=== PATIENT | male | born 1940 | race African-American/Black ===

== ENCOUNTER → 2017-10-24 | Outpatient (CLI) | payer MEDICARE, OTHER ==
--- NOTE | 2017-10-24 09:39 | ST Modified Barium Swallow ---
Recommendation - Recommendations Recommendations: 1. Recommend follow up with GI. 2. Recommend continue current diet. Medical Diagnoses - Medical Diagnoses Medical Diagnosis Description & ICD-10 Code(s): non-specific EGD with oropharyngeal transfer dysphagia vs CVA Other Medical Diagnoses/Co-Morbidities: Patient reports admitted to [facility] on 10/07/17 due to swallowing problem. Reports unable to swallow solids or pills. Reports swallow has since improved but not completely back to baseline. - ICD-10 Tx Diagnosis Coding (1) Dysphagia, pharyngoesophageal phase ICD-10 Code(s): R13.14 - DYSPHAGIA, PHARYNGOESOPHAGEAL PHASE (2) Other dysphagia ICD-10 Code(s): R13.19 - OTHER DYSPHAGIA ST Modified Barium Swallow - General Date: 10/24/17 Referring Physician: Jenny Kyle DO Risks/Precautions: None Date of Onset: 10/07/18 Reason for Referral: MBSS - History History obtained from: Patient -: Medical - patient also reports high blood pressure, high cholesterol, diabetes, heart stents, and prostate surgery. Medications: aspirin, amloplodine, aceteminophen, aricept, diazetine, fluoric acid, sertaline, vitamin D. Allergies: NKA. - Functional Status Prior Functional Status: INDEPENDENT: feeding Current Functional Limitations: feeding - Subjective Patient/caregiver goal(s): safe swallow Cognitive-Linguistic Function: WNL Speech Intelligibility: WNL Current Nutritional Means: PO Current PO diet: Regular Pain: Patient reports, 0/5 - Objective Assessment: Upright, Left Lateral - Food Trials Used Food trials used: Thin liquids, Pureed, Regular The patient: Was Able to Self Feed - Oral-Motor Skills Dentition: Dentures-Upper, Dentures-Lower Velo-pharyngeal function: Not assessed Laryngeal Function: clear voicing - Assessment Oral prep: Normal Labial closure: Adequate Leakage: None Mastication: Adequate Lingual Movement: Normal Oral stage: Normal for this Procedure - Pharyngeal Stage Initiation of Pharyngeal Stage Reflex: Normal Decreased laryngeal elevation: No Reduced Velopharyngeal Closure: no Reduced pressure generation: No Pre-swallow pooling in valleculae: None Pre-Swallow pooling in pyriforms: None Reduced epiglottic excursion: No Reduced pharyngeal peristalsis/contraction: No Post-swallow residulas vallecular: None - cleared Post-Swallow residuals in pyriforms: None Reduced Cricopharyngeal opening: No - Esophageal Stage Cricopharyngeal Function: Normal - hypertrophy - Fall Risk Assessment Medications/Conditions that increase fall risks include: Antidepressants, sedatives, anti-arrhythmic, diuretic, benzodiazipenes, neuroleptics. BP regulation problems, cardiac problems, balance or gait deficits, neurological problems. Is patient considered at risk for falls: no Fall Risk Actions Taken: No action needed - Behavioral Observations During evaluation process patient: was pleasant, was cooperative, able to answer questions - Treatment / Educational Needs: Treatment/Education Needs: Treatment consisted of patient education on the role of the Speech Pathologist. Patient's plan of care and golas were communicated as well as scheduling and attendance policies. Recommendations for initial home program were shared. Patient demonstrated understanding and verbalized agreement. - Impression/Summary Laryngeal Penetration: No Tracheal Aspiration: no Patient presents with: Normal swallow at eval - oral, oropharyngeal and pharyngeal stages within normal limits for procedure given patient's age Risk of Aspiration: Mild Risk of nutritional compromise: Moderate - Recommendations NPO: no Solid diet recommendations: Regular Liquid Diet Modification: Thin Strict aspiration precautions: Yes Pt/Family education and followup with MD: Yes Dysphagia therapy with [employer] MACHINE: no Recommended techniques: Fully Upright During Meal, Small Bites and Sips - Time Total Time: 15 - Plan of Care Summary: Patient presents with safe and effective swallow. Would recommend small bites & sips. Patient to follow-up with referring physician: Yes POC Procedures/Codes: [facility] [place]) Strategies to optimize patient understanding include:: ongoing assessment of educational needs, implementation of educational strategies, and re-education. - - -: Thank you for the opportunity to work with this patient and his/her family. Should you have any questions about this patient's plan or progress, I can be reached at [phone]. Charge G Code? - - -: No
--- NOTE | 2017-10-24 16:33 | RADIOLOGY REPORT (SQ) ---
EXAM DESCRIPTION: ODALIS SWALLOW COMPLETED DATE/TIME: 10/24/2017 8:30 am REASON FOR STUDY: DYSPHAGIA (R13.10) R13.10 DYSPHAGIA, UNSPECIFIED COMPARISON: None. TECHNIQUE: Videofluoroscopic swallowing examination was performed in conjunction with speech patholo gy. Videofluoroscopic imaging was obtained and reviewed and these are the findings: RADIATION DOSE: 1 minutes 7 seconds of fluoroscopy was used. 1 images saved to PACS. LIMITATIONS: None FINDINGS: The patient was brought into the fluoro room and placed upright on a modified barium swall ow chair. The patient was then given multiple consistencies mixed with barium to swallow under live fluoroscopic video guidance. According to the Speech Pathologist there was no penetration or aspirat ion. Mild cricopharyngeal hypertrophy. IMPRESSION: NO EVIDENCE OF PENETRATION OR ASPIRATION. PLEASE SEE SPEECH PATHOLOGIST REPORT FOR OTHE R FINDINGS AND RECOMMENDATIONS. COMMENT: Quality ID 145: Final reports for procedures using fluoroscopy that document radiation exp osure indices, or exposure time and number of fluorographic images (if radiation exposure indices are not available) TECHNICAL DOCUMENTATION: JOB ID: [id number] [employer]- All Rights Reserved
== END ==
LOC: RAD 07:06
PROVIDERS: ATTEND Family Medicine
DX: R13.14 Dysphagia, pharyngoesophageal phase (principal)
CPT/HCPCS: 74230

== ENCOUNTER 2019-06-26 08:54 | Day surgery (SDC) | payer MEDICARE, OTHER ==
[2019-06-26 09:37] LABS: HEMATOCRIT 29.2 % (37.9-51.0); HEMOGLOBIN 9.9 g/dL (13.5-17.0); MEAN CORPUSCULAR HEMOGLOBIN 35.8 pg (27.0-33.4); MEAN CORPUSCULAR HGB CONC 33.8 g/dL (32.0-36.0); MEAN CORPUSCULAR VOLUME 106 fl (80-97); PLATELET COUNT 134 10^3/uL (150-450); RED BLOOD COUNT 2.76 10^6/uL (4.35-5.55); RED CELL DISTRIBUTION WIDTH 16.6 % (11.5-14.0)
[2019-06-26 09:41] LABS: INTERNATIONAL RATION (INR) 1.12; PARTIAL THROMBOPLASTIN TIME 25.2 SEC (23.5-35.8); PROTHROMBIN TIME 14.5 SEC (11.4-15.4)
[2019-06-26 09:50] LABS: BLOOD UREA NITROGEN 10 mg/dL (7-20)
[2019-06-26 10:22] LABS: WHITE BLOOD COUNT 34.5 10^3/uL (4.0-10.5)
[2019-06-26] MEDS ORDERED: MIDAZOLAM 2 MG/2 ML INJ ONE (10:42)
[2019-06-26] MEDS ORDERED: FENTANYL CITRATE INJ/PF 100 MCG/2 ML AMPUL ONE (10:42)
--- NOTE | 2019-06-26 12:01 | RADIOLOGY REPORT (SQ) ---
EXAM DESCRIPTION: CT BIOPSY BONE MARROW, NEEDLE; CT NEEDLE PLACEMENT COMPLETED DATE/TIME: 06/26/2019 11:27 am; 06/26/2019 11:26 am REASON FOR STUDY: ELEVATED WHITE BLOOD COUNT; ELEVATED WHITE BLOOD COUNT, BONE MARROW BIOPSY D72.829 ELEVATED WHITE BLOOD CELL COUNT, UNSPECIFIED Z79.01 HALFWAY (CURRENT) USE OF ANTICOAGULANTS COMPARISON: None. TECHNIQUE: CT guided biopsy of the left iliac crest bone marrow performed with conscious sedation. CT Fluoroscopy Time: [address] scanners at this facility use dose modulation, iterative reconstruction, and/or weight based d osing when appropriate to reduce radiation dose to as low as reasonably achievable (ALARA). [facility]: Dose Right [facility]: CareDose [facility]: Dose Right [facility]: Teradose 4D [facility]: Minervax RADIATION DOSE: mGy. FINDINGS: After obtaining informed consent and explaining the risks and benefits of conscious sedati on,the patient agreed to the procedure. Prior to the procedure, a time out was performed to verify th e patient's identity and planned procedure. IV conscious sedation was administered and physician direction by the registered nurse using 75 micro grams of fentanyl. Physiologic monitoring was provided before, during, and after sedation. The total sedation time was 30 minutes. Documentation face to face time, the performing proceduralist, spent monitoring the patient: [address] scanning was performed to localize the percutaneous site for the biopsy approach. After sterile skin prep and local lidocaine for skin and deep tissue anesthesia, a coaxial biopsy nee dle was used to obtain a bone marrow aspirate, and a bone marrow core of tissue. The biopsy tissue wa s received by [facility] lab to be sent out for evaluation. There were no immediate complications. Pathology is pending at the time of dictation. IMPRESSION: CT GUIDED ASPIRATE AND CORE BIOPSY OF THE LEFT POSTERIOR ILIAC CREST BONE MARROW PERFORM ED WITHOUT IMMEDIATE COMPLICATION. PATHOLOGY PENDING. IV CONSCIOUS SEDATION WITHOUT COMPLICATION. COMMENT: Quality ID 145: Final reports for procedures using fluoroscopy that document radiation exp osure indices, or exposure time and number of fluorographic images (if radiation exposure indices are not available) Patient medication list reviewed: Yes- Quality ID# [id number]:Eligible professional attests to documenting i n the medical record they obtained, updated, or reviewed the patient's current medications.. TECHNICAL DOCUMENTATION: JOB ID: [id number] Quality ID# 436: Final reports with documentation of one or more dose reduction techniques (e.g., Aut omated exposure control, adjustment of the mA and/or kV according to patient size, use of iterative r econstruction technique) 2010 [employer]- All Rights Reserved Reading location - IP/workstation name: [email or web address]
--- NOTE | 2019-06-26 12:01 | RADIOLOGY REPORT (SQ) ---
EXAM DESCRIPTION: CT BIOPSY BONE MARROW, NEEDLE; CT NEEDLE PLACEMENT COMPLETED DATE/TIME: 06/26/2019 11:27 am; 06/26/2019 11:26 am REASON FOR STUDY: ELEVATED WHITE BLOOD COUNT; ELEVATED WHITE BLOOD COUNT, BONE MARROW BIOPSY D72.829 ELEVATED WHITE BLOOD CELL COUNT, UNSPECIFIED Z79.01 SHELTER (CURRENT) USE OF ANTICOAGULANTS COMPARISON: None. TECHNIQUE: CT guided biopsy of the left iliac crest bone marrow performed with conscious sedation. CT Fluoroscopy Time: [address] scanners at this facility use dose modulation, iterative reconstruction, and/or weight based d osing when appropriate to reduce radiation dose to as low as reasonably achievable (ALARA). [facility]: Dose Right [facility]: CareDose [facility]: Dose Right [facility]: Teradose 4D [facility]: [employer] RADIATION DOSE: mGy. FINDINGS: After obtaining informed consent and explaining the risks and benefits of conscious sedati on,the patient agreed to the procedure. Prior to the procedure, a time out was performed to verify th e patient's identity and planned procedure. IV conscious sedation was administered and physician direction by the registered nurse using 75 micro grams of fentanyl. Physiologic monitoring was provided before, during, and after sedation. The total sedation time was 30 minutes. Documentation face to face time, the performing proceduralist, spent monitoring the patient: [address] scanning was performed to localize the percutaneous site for the biopsy approach. After sterile skin prep and local lidocaine for skin and deep tissue anesthesia, a coaxial biopsy nee dle was used to obtain a bone marrow aspirate, and a bone marrow core of tissue. The biopsy tissue wa s received by [facility] lab to be sent out for evaluation. There were no immediate complications. Pathology is pending at the time of dictation. IMPRESSION: CT GUIDED ASPIRATE AND CORE BIOPSY OF THE LEFT POSTERIOR ILIAC CREST BONE MARROW PERFORM ED WITHOUT IMMEDIATE COMPLICATION. PATHOLOGY PENDING. IV CONSCIOUS SEDATION WITHOUT COMPLICATION. COMMENT: Quality ID 145: Final reports for procedures using fluoroscopy that document radiation exp osure indices, or exposure time and number of fluorographic images (if radiation exposure indices are not available) Patient medication list reviewed: Yes- Quality ID# 130:Eligible professional attests to documenting i n the medical record they obtained, updated, or reviewed the patient's current medications.. TECHNICAL DOCUMENTATION: JOB ID: [id number] Quality ID# [id number]: Final reports with documentation of one or more dose reduction techniques (e.g., Aut omated exposure control, adjustment of the mA and/or kV according to patient size, use of iterative r econstruction technique) 2010 [employer]- All Rights Reserved Reading location - IP/workstation name: [email or web address]
[2019-06-26] MEDS ORDERED: HYDRALAZINE HCL 10 MG TABLET PO ONE (13:45)
[2019-06-26 13:56] VITALS: BP 162/100
[2019-06-27 13:43] LABS: PATH REVIEW PATHOLOGIST REVIEWED
== END 2019-06-26 13:40 | disposition home or self-care (01) ==
LOC: RAD 08:54
PROVIDERS: ATTEND Internal Medicine Hematology & Oncology
DX: D72.829 Elevated white blood cell count, unspecified (principal); I25.10 Atherosclerotic heart disease of native coronary artery without angina pectoris; I10 Essential (primary) hypertension; E78.00 Pure hypercholesterolemia, unspecified; Z86.711 Personal history of pulmonary embolism; Z85.46 Personal history of malignant neoplasm of prostate; Z79.01 Long term (current) use of anticoagulants; Z79.899 Other long term (current) drug therapy; Z79.82 Long term (current) use of aspirin
CPT/HCPCS: 36415; 82962; 84520; 82565; 85027; 85610; 85730; 38221; 77012; J3010; J2250; J3490

== ENCOUNTER 2019-07-01 08:22 | Inpatient (IN) | payer OTHER, MEDICARE ==
[2019-07-01] MEDS ORDERED: ASPIRIN 81 MG TABLET, CHEWABLE PO ONE (09:10)
--- NOTE | 2019-07-01 09:31 | ER Document Report ---
ED General - General Stated Complaint: CHEST PAIN,DIFFICULTY BREATHING Time Seen by Provider: 07/01/19 09:09 Notes: 79-year-old male with a history of heart problems presents to the ER complaining of a month history of worsening shortness of breath. The patient sees Dr. Soler cardiology [place]. Patient states any exertion makes him very short of breath even taking couple steps now. The patient states his legs swell little bit but not significant is worse with any kind of exertion is not worse laying flat no fever chills he has had a nonproductive cough no sore throat. States he will get occasional chest discomfort on and off. Describes it is heaviness but will go away with rest. Rates it as mild. TRAVEL OUTSIDE OF THE [place] IN LAST 30 DAYS: No - Related Data Allergies/Adverse Reactions: No Known Allergies Allergy (Verified 06/25/19 14:27) Past Medical History - Social History Smoking Status: Unknown if Ever Smoked Family History: Reviewed & Not Pertinent - Past Medical History Cardiac Medical History: Reports: Hx Coronary Artery Disease - HIGH CHOL, Hx Heart Attack - STENTS 2003, Hx Hypertension Pulmonary Medical History: Denies: Hx Asthma, Hx Bronchitis, Hx COPD, Hx Pneumonia Neurological Medical History: Denies: Hx Cerebrovascular Accident, Hx Seizures Musculoskeletal Medical History: Reports Hx Arthritis - Immunizations Hx Diphtheria, Pertussis, Tetanus Vaccination: Yes Hx Pneumococcal Vaccination: 06/18/16 Review of Systems - Review of Systems Constitutional: denies: Chills, Fever Cardiovascular: See HPI, Chest pain, Dyspnea, Edema Respiratory: Cough, Short of breath Gastrointestinal: denies: Nausea, Vomiting Genitourinary: denies: Dysuria -: Yes All other systems reviewed and negative Physical Exam - Vital signs Vitals: Temp Pulse Resp BP Pulse Ox 98.7 F 60 22 H 185/77 H 93 07/01/19 08:54 07/01/19 08:54 07/01/19 08:54 07/01/19 08:54 07/01/19 08:54 - Notes Notes: GENERAL_APPEARANCE: well_nourished, alert, cooperative VITALS: reviewed, see vital signs table. HEAD: no_swelling\tenderness on the head. EYES: PERRL, EOMI, conjunctiva_clear. NOSE: no_nasal_discharge. MOUTH: (-)decreased moisture. THROAT: no_tonsilar_inflammation, no_airway_obstruction. no_lymphadenopathy NECK: supple, no_neck_tenderness, (-)thyromegaly. BACK: no_back_tenderness. CHEST_WALL: no_chest_tenderness. LUNGS: no_wheezing, no_rales, no_rhonchi, (-)accessory muscle use, good air exchange bilateral. HEART: normal_rate, normal_rhythm, normal_S1, normal_S2, (-)S3, (-)S4, no_murmur, no_rub. ABDOMEN: normal_BS, soft, no_abd_tenderness, (-)guarding, (-)rebound, no_organo megaly, no_abd_masses. EXTREMITIES: good pulses in all_extremities, no_swelling\tenderness in the extremities, 1+_edema. SKIN: warm, dry, good_color, no_rash. MENTAL_STATUS: speech_clear, oriented_X_3, normal_affect, responds_appropriately to questions. Course - Re-evaluation Re-evalutation: 07/01/19 09:30 79-year-old male presents with exertional dyspnea worsening over the last week. Patient has had episodes of this before. 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 The patient states he had a little bit more edema than usual but nothing significant. Denies fever chills or sore throat states he has a no nproductive cough. Denies any orthopnea but does have dyspnea on exertion. States he does get some occasional heaviness when he does exert himself. 07/01/19 14:29 BNP is elevated at 2000. Patient has hypertension. I am not getting a story of infectious etiology for him chest x-ray is not well done due to the patient's size. I think the findings in the chest x-ray are more heart failure than pneumonia. We will get a CT noncontrasted to better differentiate. Give patient a dose of Lasix here empirically in case this is pneumonia we will draw set of cultures and give a dose of Levaquin. I spoke with the hospitalist service for hospitalization to continue diuresis and further investigation. - Vital Signs Vital signs: Temp Pulse Resp BP Pulse Ox 98.7 F 60 22 H 180/91 H 93 07/01/19 08:54 07/01/19 08:54 07/01/19 11:00 07/01/19 10:01 07/01/19 11:00 - Laboratory Result Diagrams: 07/01/19 10:50 07/01/19 09:31 Laboratory results interpreted by me: 07/01/19 07/01/19 07/01/19 09:31 09:31 09:31 WBC RBC Hgb Hct MCV MCH RDW Plt Count Band Neutrophils % Monocytes % (Manual) Metamyelocytes % Myelocytes % Promyelocytes % Immature Leukocytes % Abs Neuts (Manual) Abs Lymphs (Manual) PT 18.7 H Glucose 118 H NT-Pro-B Natriuret Pep 2040 H 07/01/19 10:50 WBC 32.2 H* RBC 2.67 L Hgb 9.5 L Hct 28.4 L MCV 106 H MCH 35.6 H RDW 17.3 H Plt Count 133 L Band Neutrophils % 13 H Monocytes % (Manual) 1 L Metamyelocytes % 10 H Myelocytes % 2 H Promyelocytes % 5 H Immature Leukocytes % 1 H Abs Neuts (Manual) 25.4 H Abs Lymphs (Manual) 6.1 H PT Glucose NT-Pro-B Natriuret Pep - Diagnostic Test Radiology reviewed: Reports reviewed Radiology results interpreted by me: 07/01/19 14:29 Chest X-Ray 07/01/19 09:10 IMPRESSION: Bilateral lower lobe pneumonia. - EKG Interpretation by Me Rate: Normal When compared to previous EKG there are: Other - No acute ST ab normalities noted Discharge - Discharge Clinical Impression: Pneumonia Pulmonary edema Qualifiers: Chronicity: acute Qualified Code(s): J81.0 - Acute pulmonary edema Condition: Good Disposition: ADMITTED INPATIENT Admitting Provider: Laura (Hospitalist) Unit Admitted: Telemetry
[2019-07-01 10:00] LABS: INTERNATIONAL RATION (INR) 1.55; PROTHROMBIN TIME 18.7 SEC (11.4-15.4)
[2019-07-01 10:06] LABS: ALBUMIN 3.8 g/dL (3.5-5.0); ALKALINE PHOSPHATASE 83 U/L (38-126); ANION GAP 6 (5-19); ASPARTATE AMINO TRANSFERASE 25 U/L (17-59); BILIRUBIN,DIRECT 0.1 mg/dL (0.0-0.4); BILIRUBIN,TOTAL 0.8 mg/dL (0.2-1.3); BLOOD UREA NITROGEN 10 mg/dL (7-20); CALCIUM 9.4 mg/dL (8.4-10.2); CARBON DIOXIDE 29 mmol/L (22-30); CHLORIDE 104 mmol/L (98-107); CREATINE KINASE 74 U/L (55-170); GLUCOSE 118 mg/dL (75-110); POTASSIUM 4.1 mmol/L (3.6-5.0); TOTAL PROTEIN 6.7 g/dL (6.3-8.2)
[2019-07-01 10:16] LABS: CREATINE KINASE MB 0.63 ng/mL (<4.55); TROPONIN I 0.013 ng/mL
--- NOTE | 2019-07-01 10:19 | RADIOLOGY REPORT (SQ) ---
EXAM DESCRIPTION: CHEST SINGLE VIEW COMPLETED DATE/TIME: 07/01/2019 10:01 am REASON FOR STUDY: CP COMPARISON: None. EXAM PARAMETERS: NUMBER OF VIEWS: One view. TECHNIQUE: Single frontal radiographic view of the chest acquired. RADIATION DOSE: NA LIMITATIONS: Motion. FINDINGS: LUNGS AND PLEURA: There is segmental airspace disease in both lower lobes, left greater th an right. There are associated air bronchograms. MEDIASTINUM AND HILAR STRUCTURES: No masses. Contour normal. HEART AND VASCULAR STRUCTURES: Heart normal in size. Normal vasculature. BONES: No acute findings. HARDWARE: None in the chest. OTHER: No other significant finding. IMPRESSION: Bilateral lower lobe pneumonia. TECHNICAL DOCUMENTATION: JOB ID: [id number] [employer]- All Rights Reserved Reading location - IP/workstation name: [email or web address]
[2019-07-01 11:05] LABS: HEMATOCRIT 28.4 % (37.9-51.0); HEMOGLOBIN 9.5 g/dL (13.5-17.0); MEAN CORPUSCULAR HEMOGLOBIN 35.6 pg (27.0-33.4); MEAN CORPUSCULAR HGB CONC 33.5 g/dL (32.0-36.0); MEAN CORPUSCULAR VOLUME 106 fl (80-97); PLATELET COUNT 133 10^3/uL (150-450); RED BLOOD COUNT 2.67 10^6/uL (4.35-5.55); RED CELL DISTRIBUTION WIDTH 17.3 % (11.5-14.0)
[2019-07-01 11:37] LABS: ABSOLUTE LYMPHOCYTES# (MANUAL) 6.1 10^3/uL (0.5-4.7); ABSOLUTE MONOCYTES # (MANUAL) 0.3 10^3/uL (0.1-1.4); BASOPHILS % (MANUAL) 0 % (0-2); EOSINOPHILS % (MANUAL) 0 % (0-6); LYMPHOCYTES % (MANUAL) 18 % (13-45); MONOCYTES % (MANUAL) 1 % (3-13); SEGMENTED NEUTROPHILS % (MAN) 49 % (42-78); TOTAL CELLS COUNTED 100
[2019-07-01 11:42] LABS: ANISOCYTOSIS 1+; POIKILOCYTOSIS SLIGHT; POLYCHROMASIA 1+; TEAR DROP CELLS SLIGHT
[2019-07-01 11:43] LABS: BAND NEUTROPHILS % (MANUAL) 13 % (3-5); IMMATURE MONONUCLEAR% (MANUAL) 1 % (0); METAMYELOCYTES % (MANUAL) 10 % (0); MYELOCYTES % (MANUAL) 2 % (0); PLATELET COMMENT DECREASED; PROMYELOCYTES % (MANUAL) 5 % (0)
[2019-07-01 11:45] LABS: WHITE BLOOD COUNT 32.2 10^3/uL (4.0-10.5)
[2019-07-01] MEDS ORDERED: FUROSEMIDE INJ/PF 40 MG/4 ML SDV IV ONE (14:22)
--- NOTE | 2019-07-01 14:33 | RADIOLOGY REPORT (SQ) ---
EXAM DESCRIPTION: CT CHEST WITHOUT COMPLETED DATE/TIME: 07/01/2019 2:10 pm REASON FOR STUDY: sob - abnormal cxr COMPARISON: None. TECHNIQUE: CT scan performed of the chest without intravenous contrast. Images reviewed with lung, soft tissue and bone windows. Reconstructed coronal and sagittal MPR images reviewed. All images st ored on PACS. All CT scanners at this facility use dose modulation, iterative reconstruction, and/or weight based d osing when appropriate to reduce radiation dose to as low as reasonably achievable (ALARA). [facility]: Dose Right [facility]: CareDose [facility]: Dose Right [facility]: Teradose 4D [facility]: GPNX RADIATION DOSE: CT Rad equipment meets quality standard of care and radiation dose reduction techniq ues were employed. CTDIvol: 29.2 mGy. DLP: 1205 mGy-cm. mGy. LIMITATIONS: No technical limitations. FINDINGS: LUNGS AND PLEURA: Subsegmental airspace disease in the lower lobes, right greater than lef t. Trace right pleural effusion. HILAR AND MEDIASTINAL STRUCTURES: Calcified mediastinal and right hilar nodes. HEART AND VASCULAR STRUCTURES: Cardiomegaly. No pericardial effusion. UPPER ABDOMEN: No significant findings. Limited exam. THYROID AND OTHER SOFT TISSUES: Gynecomastia. BONES: Nothing acute. HARDWARE: None in the chest. OTHER: No other significant findings. IMPRESSION: Bilateral lower lobe airspace disease. In the appropriate clinical setting this is cons istent with pneumonia. TECHNICAL DOCUMENTATION: JOB ID: [id number] Quality ID # [id number]: Final reports with documentation of one or more dose reduction techniques (e.g., Au tomated exposure control, adjustment of the mA and/or kV according to patient size, use of iterative reconstruction technique) 2010 [employer]- All Rights Reserved Reading location - IP/workstation name: [email or web address]
[2019-07-01] MEDS ORDERED: IPRATROPIUM/ALBUTEROL 0.5-2.5 MG/3 ML AMPUL NEB PRN (15:19)
--- NOTE | 2019-07-01 15:42 | ADVANCED CARE ---
- Diagnosis (1) Acute respiratory failure with hypoxia Diagnosis Current: Yes (2) Pneumonia Diagnosis Current: Yes (3) CAD (coronary artery disease) Diagnosis Current: Yes (4) History of pulmonary embolism Diagnosis Current: Yes (5) Leukemia Diagnosis Current: Yes Resuscitation Status: Full Code Discussion: Discussed with patient. He says he is a full code and prefers to receive chest compressions, defibrillation or mechanical ventilation if the need arises. He says his , Hector Redmond is his surrogate medical decision maker.
--- NOTE | 2019-07-01 15:42 | PDOC H&P ---
History of Present Illness Admission Date/PCP: 07/01/19 14:44 History of Present Illness: GISELE CHO is a 79 year old male with a past medical history of hypertension, hyperlipidemia, CAD with 2 prior stenting, diet-controlled diabetes mellitus currently being worked up for possible leukemia who presented with increasing shortness of breath. Patient says that he has been having this increasing shortness of breath in the past 2 months but has noticed it has worsened in the past week. He says that in the past few days it has gotten worse and even after a few steps, he gets really short of breath. In the ER, chest x-ray shows bilateral lower lobe pneumonia. Chest CT was also done which showed by basilar opacities. Upon encounter, he saturating at 92% on room air. He is slightly tachypneic at 24-25. He reports he had bipedal edema in the past few months but it actually h as gone down in the past several weeks. He has occasional PND. He denies prior diagnosis of CHF. On chart review, patient appears to have a history of right- sided pulmonary embolism in 2016 and was on Coumadin for 6 months. He says he has been off the Coumadin. 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 He also had a recent bone marrow biopsy and hematology still awaiting final results of flow cytometry and other related studies. Patient denies cough, fever or chills. He denies recent sick contacts. Past Medical History Cardiac Medical History: Reports: Coronary Artery Disease - HIGH CHOL, Myocar dial Infarction - STENTS 2004, Hypertension Pulmonary Medical History: Denies: Asthma, Bronchitis, Chronic Obstructive Pulmonary Disease (COPD), Pneumonia Neurological Medical History: Denies: Seizures Musculoskeltal Medical History: Reports: Arthritis Hematology: Denies: Anemia Social History Smoking Status: Unknown if Ever Smoked Electronic Cigarette use?: No Family History Family History: Reviewed & Not Pertinent Parental Family History Reviewed: Yes - No premature CAD Children Family History Reviewed: No Sibling(s) Family History Reviewed.: No Medication/Allergy Allergies/Adverse Reactions: No Known Allergies Allergy (Verified 06/25/19 14:27) Review of Systems All systems: reviewed and no additional remarkable complaints except as stated - As mentioned in HPI Physical Exam Vital Signs: Temp Pulse Resp BP Pulse Ox 98.7 F 60 22 H 180/91 H 93 07/01/19 08:54 07/01/19 08:54 07/01/19 11:00 07/01/19 10:01 07/01/19 11:00 Intake & Output 06/30/19 07/01/19 07/02/19 06:59 06:59 06:59 Weight 422 lb 13.546 oz General appearance: PRESENT: morbidly obese, well-developed, well-nourished Head exam: PRESENT: atraumatic, normocephalic Eye exam: PRESENT: conjunctiva pink, EOMI, PERRLA. ABSENT: scleral icterus Ear exam: PRESENT: normal external ear exam Mouth exam: PRESENT: moist, tongue midline Neck exam: ABSENT: carotid bruit, JVD, lymphadenopathy, thyromegaly Respiratory exam: PRESENT: rhonchi. ABSENT: rales, wheezes Cardiovascular exam: PRESENT: RRR. ABSENT: diastolic murmur, rubs, systolic murmur Pulses: PRESENT: normal dorsalis pedis pul GI/Abdominal exam: PRESENT: normal bowel sounds, soft. ABSENT: distended, guarding, mass, organolmegaly, rebound, tenderness Rectal exam: PRESENT: deferred Extremities exam: PRESENT: +1 edema Neurological exam: PRESENT: alert, awake, oriented to person, oriented to place, oriented to time, oriented to situation, CN II-XII grossly intact. ABSENT: motor sensory deficit Results Laboratory Results: 07/01/19 10:50 07/01/19 09:31 07/01/19 07/01/19 07/01/19 09:31 09:31 10:50 WBC Cancelled 32.2 H* RBC Cancelled 2.67 L Hgb Cancelled 9.5 L Hct Cancelled 28.4 L MCV Cancelled 106 H MCH Cancelled 35.6 H MCHC Cancelled 33.5 RDW Cancelled 17.3 H Plt Count Cancelled 133 L Seg Neutrophils % Cancelled Not Reportable Sodium 139.4 Potassium 4.1 Chloride 104 Carbon Dioxide 29 Anion Gap 6 BUN 10 Creatinine 0.99 Est GFR ( Amer) > 60 Glucose 118 H Calcium 9.4 Total Bilirubin 0.8 AST 25 Alkaline Phosphatase 83 Total Protein 6.7 Albumin 3.8 07/01/19 07/01/19 09:31 09:31 Creatine Kinase 74 CK-MB (CK-2) 0.63 Troponin I 0.013 NT-Pro-B Natriuret Pep 2040 H Impressions: Chest X-Ray 07/01/19 09:10 IMPRESSION: Bilateral lower lobe pneumonia. Chest CT 07/01/19 13:49 IMPRESSION: Bilateral lower lobe airspace disease. In the appropriate clinical setting this is consistent with pneumonia. Assessment and Plan - Diagnosis (1) Acute respiratory failure with hypoxia Is this a current diagnosis for this admission?: Yes Plan: Chest x-ray and chest CT suggests bilateral lower lobe pneumonia. Patient has chronic leukocytosis and is currently being worked up for a likely leukemia. However, patient denies any recent productive cough. He denies fever or chills. He denies prior history of CHF but has not had an echo before. He does report of bipedal edema in the past few months although he reports that this has actually improved in the past several weeks. He has occasional PND. BNP elevated at 2040. Will pursue an echocardiogram to assess his LVEF. He has a history of pulmonary embolism in 2016 and was on Coumadin for 6 months. Unsure if this was provoked or not. Initially ordered a VQ scan however later called by staff that patient exceeds the weight limit for the VQ scan. Note he was given IV Lasix in the ER. Strongly recommend ruling out pulmonary embolism. Will pursue a CTA of the chest instead. Discussed benefits and risk of contrast based study with patient, he is amenable to pursuing a chest CTA. Hold off on further diuresis until PE is ruled out. (2) Pneumonia Is this a current diagnosis for this admission?: Yes Plan: Empirically start patient on levofloxacin. (3) Leukemia Is this a current diagnosis for this admission?: Yes Plan: Patient had a recent bone marrow biopsy. Discussed with hematology. Awaiting flow cytometry and other related studies done recently. (4) History of pulmonary embolism Is this a current diagnosis for this admission?: Yes (5) CAD (coronary artery disease) Is this a current diagnosis for this admission?: Yes Plan: Resume home meds once verified. (6) Morbid obesity Is this a current diagnosis for this admission?: Yes Plan: BMI of 55.8. Counseled on lifestyle modification. Also consult dietitian. (7) HTN (hypertension) Is this a current diagnosis for this admission?: Yes Plan: Resume home meds once verified. Will add IV hydralazine as needed with parameters. - Time Time Spent with patient: 25-34 minutes
[2019-07-01] MEDS ORDERED: FUROSEMIDE INJ/PF 40 MG/4 ML SDV ONE (16:42)
[2019-07-01] MEDS: LEVOFLOXACIN 750 MG/D5W RTU 750 MG/150 ML RTUPB IV ONE ×2 (16:43→19:46)
[2019-07-01] MEDS ORDERED: LIDOCAINE 2% INJ (20 MG/ML) 20 ML MDV ONE (18:51)
--- NOTE | 2019-07-01 19:40 | RADIOLOGY REPORT (SQ) ---
EXAM DESCRIPTION: CHEST SINGLE VIEW COMPLETED DATE/TIME: 07/01/2019 7:28 pm REASON FOR STUDY: CENTRAL LINE PLACEMENT COMPARISON: 07/01/2019 at 0950 hours TECHNIQUE: Single frontal radiographic view of the chest acquired. NUMBER OF VIEWS: One view. LIMITATIONS: None. FINDINGS: LUNGS AND PLEURA: No pneumothorax. Similar left basilar consolidation - pleural effusion. MEDIASTINUM AND HILAR STRUCTURES: Stable. HEART AND VASCULAR STRUCTURES: Stable. BONES: No acute findings. HARDWARE: New left subclavian vascular catheter with tip directed toward the aortic arch left of midl ine, correlate to exclude arterial placement. OTHER: No other significant finding. IMPRESSION: New left subclavian vascular catheter with tip directed toward the aortic arch left of m idline, correlate to exclude arterial placement. COMMENT: The findings were sent to the Radiology Results Communication Center at 19:34 on 9 to be communicated to a licensed caregiver. TECHNICAL DOCUMENTATION: JOB ID: [id number] [place]-72 2010 [employer]- All Rights Reserved Reading location - IP/workstation name: [email or web address]
--- NOTE | 2019-07-01 19:57 | Operative Report ---
Nonrecallable Operative Report DATE OF SURGERY: 07/01/19 PREOPERATIVE DIAGNOSIS: Pneumonia need for IV access POSTOPERATIVE DIAGNOSIS: Pneumonia need for IV access OPERATION: Right internal jugular line placement SURGEON: ALFREDITO REBOLLEDO ANESTHESIA: Local TISSUE REMOVED OR ALTERED: None COMPLICATIONS: None INTRAOPERATIVE FINDINGS: See dictation PROCEDURE: Patient was seen in the emergency room on the emergency room [facility] after appropriate consent and site verification the left neck was prepped and draped in usual sterile fashion. After appropriate site verification and timeout the area under the left clavicle was prepped and draped in usual sterile fashion. The skin there was anesthetized with 1% lidocaine plain and a subclavian stick was made with a 16-gauge needle we then had good venous return and placed a J- wire through the needle into the superior vena cava the needle was removed and the dilator was placed over the wire into the soft tissue the dilator was then removed a pump trying to place the catheter over the wire the 16 German triple- lumen catheter I could not thread it secondary to the thickness of his left neck and chest and therefore abandoned this site. I then placed the patient again in a Trendelenburg position and prepped the right internal jugular site. After anesthetizing the skin over the sternocleidomastoid muscle I obtained access of the right internal jugular vein which it with a 22-gauge needle. Then using a 16-gauge needle I also a obtained access of the right internal jugular vein. Through the needle I passed a J-wire which passed easily. The needle was removed the dilator was placed over the wire and the dilator was then removed and a 16 German triple-lumen catheter was then placed into position. It withdrew and infuse easily. It was sutured to the skin with 2-0 silk and a sterile dressing was applied which completed the procedure chest x-ray confirmed good placement.
[2019-07-01] MEDS: HYDRALAZINE HCL INJ/PF 20 MG/1 ML SDV IV PRN (19:59)
--- NOTE | 2019-07-01 20:17 | RADIOLOGY REPORT (SQ) ---
EXAM DESCRIPTION: XR CHEST 1 VIEW COMPLETED DATE/TME: 07/01/2019 00:00 CLINICAL HISTORY: 79 years Male CENTRAL LINE PLACEMENT COMPARISON: 07/01/2019 7:15 PM FINDINGS: The cardiomediastinal silhouette appears unchanged. Atelectasis and/or infiltrate in the lung bases with bilateral effusions. There is been placement of a right IJ catheter with tip in the region of the SVC. No evidence of pneumothorax. IMPRESSION: Basilar atelectasis or infiltrate with bilateral effusions unchanged from the previous Cardiac enlargement IJ catheter in place on the right with the tip in the SVC
[2019-07-01] MEDS: HEPARIN SOD (PORCINE) 5,000 UNIT/ML 1 ML VIAL SUBCUT SCH (21:26)
[2019-07-01] MEDS ORDERED: NORMAL SALINE 10 ML SDV (SCHEDULED) IV SCH (22:00)
[2019-07-01] MEDS ORDERED: NORMAL SALINE 10 ML SDV (AFTER EACH USE) IV PRN (22:00)
[2019-07-02] MEDS: HEPARIN SOD (PORCINE) 5,000 UNIT/ML 1 ML VIAL SUBCUT SCH ×3 (05:08→21:04)
[2019-07-02 05:33] LABS: HEMOGLOBIN 9.7 g/dL (13.5-17.0); MEAN CORPUSCULAR HEMOGLOBIN 35.3 pg (27.0-33.4); MEAN CORPUSCULAR HGB CONC 33.6 g/dL (32.0-36.0); MEAN CORPUSCULAR VOLUME 105 fl (80-97); PLATELET COUNT 136 10^3/uL (150-450); RED BLOOD COUNT 2.75 10^6/uL (4.35-5.55); RED CELL DISTRIBUTION WIDTH 17.3 % (11.5-14.0); WHITE BLOOD COUNT 29.1 10^3/uL (4.0-10.5)
[2019-07-02 05:41] LABS: ANION GAP 8 (5-19); BLOOD UREA NITROGEN 10 mg/dL (7-20); CALCIUM 9.5 mg/dL (8.4-10.2); CARBON DIOXIDE 31 mmol/L (22-30); CHLORIDE 102 mmol/L (98-107); GLUCOSE 102 mg/dL (75-110); POTASSIUM 3.8 mmol/L (3.6-5.0)
[2019-07-02 06:06] LABS: ABSOLUTE LYMPHOCYTES# (MANUAL) 3.5 10^3/uL (0.5-4.7); ANISOCYTOSIS 1+; BAND NEUTROPHILS % (MANUAL) 12 % (3-5); BASOPHILS % (MANUAL) 0 % (0-2); EOSINOPHILS % (MANUAL) 0 % (0-6); HYPOCHROMASIA SLIGHT; LYMPHOCYTES % (MANUAL) 10 % (13-45); METAMYELOCYTES % (MANUAL) 3 % (0); MONOCYTES % (MANUAL) 0 % (3-13); MYELOCYTES % (MANUAL) 6 % (0); PLATELET COMMENT ADEQUATE; POLYCHROMASIA SLIGHT; SEGMENTED NEUTROPHILS % (MAN) 67 % (42-78); TOTAL CELLS COUNTED 100
--- NOTE | 2019-07-02 08:28 | PDOC PROGRESS REPORT ---
Subjective Progress Note for:: 07/02/19 Subjective:: Sitting up in the chair resting comfortably. He is on nasal cannula. He is waiting for breakfast. He states that he feels slightly better than yesterday. No acute events overnight. Reason For Visit: ACUTE HYPOXIC RESPIRATORY FAILURE, PNEUMONIA Physical Exam Vital Signs: Temp Pulse Resp BP Pulse Ox 98.4 F 57 L 22 H 155/69 H 98 07/02/19 04:02 07/02/19 07:00 07/02/19 04:02 07/02/19 04:02 07/02/19 04:02 Intake & Output 07/01/19 07/02/19 07/03/19 06:59 06:59 06:59 Intake Total 440 Output Total 1400 Balance -960 Weight 162.8 kg General appearance: PRESENT: no acute distress, cooperative, morbidly obese, well-developed Head exam: PRESENT: atraumatic, normocephalic Eye exam: PRESENT: conjunctiva pale. ABSENT: scleral icterus Ear exam: PRESENT: normal external ear exam. ABSENT: bleeding, drainage Mouth exam: PRESENT: dry mucosa, tongue midline Neck exam: PRESENT: lymphadenopathy - Palpable node left submandibular area. Right IJ central line Respiratory exam: PRESENT: rales, rhonchi, symmetrical, unlabored. ABSENT: accessory muscle use, tachypnea, wheezes Cardiovascular exam: PRESENT: RRR, +S1, +S2. ABSENT: diastolic murmur, systolic murmur GI/Abdominal exam: PRESENT: normal bowel sounds, soft, other - Protuberant abdomen. ABSENT: guarding, tenderness Rectal exam: PRESENT: deferred Gentrourinary exam: ABSENT: indwelling catheter Extremities exam: PRESENT: +1 edema. ABSENT: calf tenderness Musculoskeletal exam: PRESENT: ambulatory. ABSENT: deformity, tenderness Neurological exam: PRESENT: alert, awake, oriented to person, oriented to place, oriented to time, oriented to situation, CN II-XII grossly intact Psychiatric exam: PRESENT: appropriate affect, normal mood. ABSENT: agitated, anxious Focused psych exam: ABSENT: delusional, restlessness Skin exam: PRESENT: dry, normal color, warm. ABSENT: rash Results Laboratory Results: 07/02/19 05:15 07/02/19 05:15 07/01/19 07/01/19 07/01/19 09:31 09:31 10:50 WBC Cancelled 32.2 H* RBC Cancelled 2.67 L Hgb Cancelled 9.5 L Hct Cancelled 28.4 L MCV Cancelled 106 H MCH Cancelled 35.6 H MCHC Cancelled 33.5 RDW Cancelled 17.3 H Plt Count Cancelled 133 L Seg Neutrophils % Cancelled Not Reportable Sodium 139.4 Potassium 4.1 Chloride 104 Carbon Dioxide 29 Anion Gap 6 BUN 10 Creatinine 0.99 Est GFR ( Amer) > 60 Glucose 118 H Lactic Acid Calcium 9.4 Total Bilirubin 0.8 AST 25 Alkaline Phosphatase 83 Total Protein 6.7 Albumin 3.8 07/01/19 07/02/19 07/02/19 16:27 05:15 05:15 WBC 29.1 H RBC 2.75 L Hgb 9.7 L Hct 29.0 L MCV 105 H MCH 35.3 H MCHC 33.6 RDW 17.3 H Plt Count 136 L Seg Neutrophils % Not Reportable Sodium 140.7 Potassium 3.8 Chloride 102 Carbon Dioxide 31 H Anion Gap 8 BUN 10 Creatinine 0.95 Est GFR ( Amer) > 60 Glucose 102 Lactic Acid 1.2 Calcium 9.5 Total Bilirubin AST Alkaline Phosphatase Total Protein Albumin 07/01/19 07/01/19 07/01/19 09:31 09:31 14:25 Creatine Kinase 74 CK-MB (CK-2) 0.63 Troponin I 0.013 < 0.012 NT-Pro-B Natriuret Pep 2040 H Impressions: Chest X-Ray 07/01/19 09:10 IMPRESSION: Bilateral lower lobe pneumonia. Chest CT 07/01/19 13:49 IMPRESSION: Bilateral lower lobe airspace disease. In the appropriate clinical setting this is consistent with pneumonia. Assessment and Plan - Diagnosis (1) Acute respiratory failure with hypoxia Is this a current diagnosis for this admission?: Yes Plan: 07/02/2019-continue current medication regimen. Continue to wean oxygen as tolerated. (2) Pneumonia Qualifiers: Pneumonia type: due to unspecified organism Laterality: bilateral Lung location: lower lobe of lung Qualified Code(s): J18.1 - Lobar pneumonia, unspecified organism Is this a current diagnosis for this admission?: Yes Plan: 07/02/2019-continue antibiotic therapy. 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 Immunity may be compromised. No sputum culture was obtained. Difficult to decide on which organism may have caused the pneumonia. Is most likely bacterial and possibly Streptococcus. (3) CAD (coronary artery disease) Qualifiers: Coronary Disease-Associated Artery/Lesion type: [place] artery Associated angina: without angina Is this a current diagnosis for this admission?: Yes Plan: 07/02/2019-currently no symptoms of acute coronary syndrome. Continue current regimen. (4) History of pulmonary embolism Is this a current diagnosis for this admission?: Yes Plan: 07/02/2019-CT angiogram shows no evidence of recurrent pulmonary embolism. (5) HTN (hypertension) Is this a current diagnosis for this admission?: Yes Plan: 07/02/2019-medications resumed. Continue to monitor blood pressure. (6) CML (chronic myelocytic leukemia) Is this a current diagnosis for this admission?: Yes Plan: 07/02/2019-I discussed the case with Dr. Hopkins. She will initiate oral chemotherapeutic regimen for the patient's CML. He will follow-up with her as an outpatient. - Time Time Spent with patient: 15-24 minutes Medications reviewed and adjusted accordingly: Yes Anticipated discharge: Home
--- NOTE | 2019-07-02 08:54 | PDOC CONSULTATION ---
Consultation Consult Date: 07/02/19 Provider Consulted: DONALD ROUSE Consult reason:: Hematology Oncology consultation was requested for patient with leukocytosis and possible leukemia. History of Present Illness Admission Date/PCP: 07/01/19 15:17 History of Present Illness: GISELE CHO is a 79 year old male who underwent bone marrow biopsy on 06/26/2019 for leukocytosis. Results are still pending. He presented to the ED with worsening dyspnea. This morning, he states that he is feeling better. He denies any pain. His breathing was progressively worse over the last week. No other new complaints voiced today. Past Medical History Cardiac Medical History: Reports: Coronary Artery Disease - HIGH CHOL, Myocardial Infarction - STENTS 2003, Hyperlipidema, Hypertension Pulmonary Medical History: Reports: Other - Pulmonary embolism 2015 Denies: Asthma, Bronchitis, Chronic Obstructive Pulmonary Disease (COPD), Pneumonia Neurological Medical History: Denies: Seizures Malignancy Medical History: Reports: Other - Prostate cancer 2003 Musculoskeltal Medical History: Reports: Arthritis Psychiatric Medical History: Reports: Dementia Hematology: Denies: Anemia Past Surgical History Past Surgical History: Reports: Cardiac Catheterization, Other - Prostate surgery, cataract removal Social History Information Source: Patient Occupation: [employer] Lives with: Spouse/Significant other Smoking Status: Former Smoker Electronic Cigarette use?: No Number of Years Smokin Last Time Smoked: 20 years ago Frequency of Alcohol Use: Occasional Amount of Alcoholic Beverages Per Day: 2 drinks per week. Hx Recreational Drug Use: No Drugs: None Hx Prescription Drug Abuse: No Past Social History Note: 3 children. - Advance Directive Resuscitation Status: Full Code Family History Family History: Other - Patient was adopted and does not know much biological history. Parental Family History Reviewed: No Children Family History Reviewed: Yes Sibling(s) Family History Reviewed.: No Medication/Allergy Home Medications: Celecoxib [Celebrex 200 mg Capsule] 200 mg PO Q12 07/01/19 Donepezil HCl [Aricept 5 mg Tablet] 5 mg PO QHS 07/01/19 Furosemide [Lasix 40 mg Tablet] 40 mg PO DAILY 07/01/19 Isosorbide Mononitrate [Imdur 30 mg Tablet.er] 30 mg PO DAILY 07/01/19 Lisinopril [Prinivil 40 mg Tablet] 40 mg PO DAILY 07/01/19 Metoprolol Succinate [Toprol Xl 50 mg Tab.sr] 50 mg PO DAILY 07/01/19 Omeprazole 40 mg PO ACBRKFST 07/01/19 Rosuvastatin Calcium [Crestor 20 mg Tablet] 20 mg PO QHS 07/01/19 Sertraline HCl [Zoloft] 200 mg PO DAILY 07/01/19 Solifenacin Succinate [Vesicare] 5 mg PO DAILY 07/01/19 Allergies/Adverse Reactions: No Known Allergies Allergy (Verified 06/25/19 14:27) Review of Systems Constitutional: ABSENT: fever(s), headache(s) Eyes: ABSENT: visual disturbances Ears: ABSENT: hearing changes Nose, Mouth, and Throat: ABSENT: sore throat Cardiovascular: PRESENT: dyspnea on exertion Respiratory: PRESENT: dyspnea Gastrointestinal: ABSENT: diarrhea, nausea Genitourinary: ABSENT: dysuria Musculoskeletal: ABSENT: back pain Integumentary: ABSENT: rash Neurological: PRESENT: weakness. ABSENT: frequent falls Psychiatric: ABSENT: anxiety Hematologic/Lymphatic: ABSENT: easy bleeding Physical Exam Vital Signs: Temp Pulse Resp BP Pulse Ox 98.4 F 57 L 22 H 155/69 H 98 07/02/19 04:02 07/02/19 07:00 07/02/19 04:02 07/02/19 04:02 07/02/19 04:02 Intake & Output 07/01/19 07/02/19 07/03/19 06:59 06:59 06:59 Intake Total 440 Output Total 1400 Balance -960 Weight 162.8 kg General appearance: PRESENT: mild distress, morbidly obese Exam: 79 year old male. Head exam: PRESENT: atraumatic, normocephalic Eye exam: PRESENT: EOMI Mouth exam: PRESENT: tongue midline Neck exam: ABSENT: lymphadenopathy, tenderness Respiratory exam: PRESENT: clear to auscultation wero Cardiovascular exam: PRESENT: other - Heart sounds are obscured. GI/Abdominal exam: PRESENT: soft. ABSENT: tenderness Extremities exam: ABSENT: pedal edema Musculoskeletal exam: PRESENT: normal inspection Neurological exam: PRESENT: alert, awake Psychiatric exam: PRESENT: appropriate affect Skin exam: PRESENT: normal color Results Laboratory Results: 07/02/19 05:15 07/02/19 05:15 07/01/19 07/01/19 07/01/19 09:31 09:31 10:50 WBC Cancelled 32.2 H* RBC Cancelled 2.67 L Hgb Cancelled 9.5 L Hct Cancelled 28.4 L MCV Cancelled 106 H MCH Cancelled 35.6 H MCHC Cancelled 33.5 RDW Cancelled 17.3 H Plt Count Cancelled 133 L Seg Neutrophils % Cancelled Not Reportable Sodium 139.4 Potassium 4.1 Chloride 104 Carbon Dioxide 29 Anion Gap 6 BUN 10 Creatinine 0.99 Est GFR ( Amer) > 60 Glucose 118 H Lactic Acid Calcium 9.4 Total Bilirubin 0.8 AST 25 Alkaline Phosphatase 83 Total Protein 6.7 Albumin 3.8 07/01/19 07/02/19 07/02/19 16:27 05:15 05:15 WBC 29.1 H RBC 2.75 L Hgb 9.7 L Hct 29.0 L MCV 105 H MCH 35.3 H MCHC 33.6 RDW 17.3 H Plt Count 136 L Seg Neutrophils % Not Reportable Sodium 140.7 Potassium 3.8 Chloride 102 Carbon Dioxide 31 H Anion Gap 8 BUN 10 Creatinine 0.95 Est GFR ( Amer) > 60 Glucose 102 Lactic Acid 1.2 Calcium 9.5 Total Bilirubin AST Alkaline Phosphatase Total Protein Albumin 07/01/19 07/01/19 07/01/19 09:31 09:31 14:25 Creatine Kinase 74 CK-MB (CK-2) 0.63 Troponin I 0.013 < 0.012 NT-Pro-B Natriuret Pep 2040 H Impressions: Chest X-Ray 07/01/19 09:10 IMPRESSION: Bilateral lower lobe pneumonia. Chest CT 07/01/19 13:49 IMPRESSION: Bilateral lower lobe airspace disease. In the appropriate clinical setting this is consistent with pneumonia. Status: Image reviewed by me Assessment & Plan - Diagnosis (1) Acute respiratory failure with hypoxia Is this a current diagnosis for this admission?: Yes Plan: Patient is breathing better this morning. I will defer to primary team. (2) History of pulmonary embolism Is this a current diagnosis for this admission?: Yes Plan: He is on Heparin SC at prophylaxis dose. Awaiting CT-A to rule out current PE. (3) Leukemia Qualifiers: Myeloid leukemia type: unspecified myeloid Leukemia Active/Remission status: without remission Is this a current diagnosis for this admission?: Yes Plan: I just spoke with Dr. Laguna who is in the process of reviewing his bone marrow slides. Further studies still pending, but this appears to be chronic phase CML. I will go ahead and try to start Imatinib 400 mg po daily. I will also check BCR-ABL by PCR as baseline. This is a new diagnosis and I have not yet discussed this with the patient. I will do so later today. (4) Morbid obesity Is this a current diagnosis for this admission?: Yes Plan: Nutrition counseling. Encourage patient to be up walking as much as possible. - Plan Summary Plan Summary: Thank you for this consultation. I did review the peripheral blood smear today. There are immature forms and occasional blasts. Patient was discussed with Dr. Olivia. I will continue to follow with you.
--- NOTE | 2019-07-02 10:31 | RADIOLOGY REPORT (SQ) ---
EXAM DESCRIPTION: CTA CHEST COMPLETED DATE/TIME: 07/02/2019 10:06 am REASON FOR STUDY: r/o PE,inc SOB, hx of PE in 2016 COMPARISON: 07/01/2019. TECHNIQUE: CT scan of the chest performed using helical scanning technique with dynamic intravenous contrast injection. Images reviewed with lung, soft tissue and bone windows. Reconstructed coronal and sagittal MPR images reviewed. Additional 3 dimensional post-processing performed to develop Maximal Intensity Projection images (OR P). All images stored on PACS. All CT scanners at this facility use dose modulation, iterative reconstruction, and/or weight based d osing when appropriate to reduce radiation dose to as low as reasonably achievable (ALARA). [facility]: Dose Right [facility]: CareDose [facility]: Dose Right [facility]: Teradose 4D [facility]: [employer] CONTRAST TYPE AND DOSE: contrast/concentration: Isovue 350.00 mg/ml; Total Contrast Delivered: 68.0 ml; Total Saline Delivered: 55.0 ml Contrast bolus adequate for pulmonary arteries and aorta. RENAL FUNCTION: BUN 10 creatinine 0.99. RADIATION DOSE: CT Rad equipment meets quality standard of care and radiation dose reduction techniq ues were employed. CTDIvol: 14.1 - 15.6 mGy. DLP: 630 mGy-cm. . LIMITATIONS: None. FINDINGS: LUNGS AND PLEURA: Bilateral pleural effusions. Patchy lower lobe airspace disease. AORTA AND GREAT VESSELS: No aneurysm. No dissection. HEART: No pericardial effusion. No significant coronary artery calcifications. PULMONARY ARTERIES: No emboli visualized in the main pulmonary arteries or the segmental branches. HILAR AND MEDIASTINAL STRUCTURES: No identified masses or abnormal nodes. HARDWARE: None in the chest. UPPER ABDOMEN: No significant findings. Limited exam. THYROID AND OTHER SOFT TISSUES: No masses. No adenopathy. BONES: No acute or significant finding. 3D MIPS: Confirm above findings. OTHER: No other significant finding. IMPRESSION: 1. NORMAL CTA OF THE CHEST. NO PULMONARY EMBOLI. 2. BILATERAL PLEURAL EFFUSIONS WITH PATCHY LOWER LOBE AIRSPACE DISEASE. COMMENT: Quality ID # [id number]: Final reports with documentation of one or more dose reduction techniques (e.g., Automated exposure control, adjustment of the mA and/or kV according to patient size, use of iterative reconstruction technique) TECHNICAL DOCUMENTATION: JOB ID: [id number] [employer]- All Rights Reserved Reading location - IP/workstation name: [facility]
[2019-07-02 10:46] LABS: PATH REVIEW PATHOLOGIST REVIEWED
[2019-07-02] MEDS: LEVOFLOXACIN 750 MG/D5W RTU 750 MG/150 ML RTUPB IV SCH (10:53)
[2019-07-02] MEDS: DONEPEZIL HCL 5 MG TABLET PO SCH (21:04)
[2019-07-02] MEDS: CELECOXIB 200 MG CAPSULE PO SCH (21:04)
--- NOTE | 2019-07-02 21:36 | EKG REPORT ---
SEVERITY:- BORDERLINE ECG - SINUS RHYTHM PROBABLE LEFT ATRIAL ABNORMALITY BORDERLINE T ABNORMALITIES, DIFFUSE LEADS : Confirmed by: Bay Sharpe 02-Jul-2019 21:35:44
--- NOTE | 2019-07-02 22:27 | XCELERA REPORT ---
[address] [address] Transthoracic Echocardiogram Report Name: GSIELE CHO Age: 79 yrs Gender: Male : 1940 Patient Status: Inpatient Patient Location: [address] [place], [place] [address]A Study Date: 07/02/2019 04:04 PM Height: 73 in Weight: 422 lb BSA: 3.0 m2 Procedure: A two-dimensional transthoracic echocardiogram with color flow and Doppler was performed. The study was technically difficult with many images being suboptimal in quality. Study Quality: Technically suboptimal. Reason For Study: inc SOB,pedal edema,eev BNP History: inc SOB,pedal edema,eev BNP. Ordering Physician: TUNDE PEREIRA Performed By: Marquita Jorge Interpretation Summary The left ventricle is grossly normal size. There is normal left ventricular wall thickness. Left ventricular systolic function is low normal. LV EF is 55% Doppler measurements suggest impaired left ventricular relaxation, which is associated with grade I/IV or mild diastolic dysfunction The left ventricular wall motion is normal. The right ventricle is not well visualized secondary to technical limitations Right atrium not well visualized secondary to technical limitations The left atrial size is normal. There is no evidence of mitral valve prolapse. There is no vegetation seen on the mitral valve. There is no mitral valve stenosis. There is a trace amount of mitral regurgitation There is no aortic valve stenosis No aortic regurgitation is present. There is no tricuspid stenosis. No ASD ,VSD , or PFO seen. There is a trace amount of tricuspid regurgitation There is mild pulmonary hypertension by echo RVSP is 38 to 43 mm of Hg , with RA mean of 5 to 10. There is no pulmonic valvular stenosis. There is no pulmonic valvular regurgitation. The aortic root is not well visualized but is probably normal size. The inferior vena cava appeared normal and decreased > 50% with respiration (RAP 5-10 mmHg) Small pericardial effusion behibd Right ATrium.No eviidence of tamponade. MMode/2D Measurements & Calculations RVDd: 4.5 cm LVIDd: 6.8 cm FS: 24.0 % Ao root diam: 3.5 cm IVSd: 1.2 cm LVIDs: 5.1 cm EDV(Teich): 237.1 ml Ao root area: 9.7 cm2 LVPWd: 1.1 cm ESV(Teich): 126.3 ml LA dimension: 4.5 cm EF(Teich): 46.7 % Doppler Measurements & Calculations MV E max monty: MV P1/2t max monty: Ao V2 max: LV V1 max P.0 cm/sec 79.5 cm/sec 153.6 cm/sec 9.2 mmHg MV A max monty: MV P1/2t: 60.7 msec Ao max P.4 mmHgLV V1 max: 114.0 cm/sec MVA(P1/2t): 3.6 cm2 152.0 cm/sec MV E/A: 0.69 MV dec slope: 383.7 cm/sec2 MV dec time: 0.19 sec PA V2 max: TR max monty: MV P1/2t-pr_phl: 115.0 cm/sec 286.4 cm/sec 60.7 msec PA max P.3 mmHgTR max P.8 mmHg Left Ventricle The left ventricle is grossly normal size. There is normal left ventricular wall thickness. Left ventricular systolic function is low normal. LV EF is 55%. Doppler measurements suggest impaired left ventricular relaxation, which is associated with grade I/IV or mild diastolic dysfunction. The left ventricular wall motion is normal. There is no thrombus. Right Ventricle The right ventricle is not well visualized secondary to technical limitations. Atria Right atrium not well visualized secondary to technical limitations. The left atrial size is normal. No ASD ,VSD , or PFO seen. Mitral Valve There is no evidence of mitral valve prolapse. There is no vegetation seen on the mitral valve. There is no mitral valve stenosis. There is a trace amount of mitral regurgitation. Aortic Valve There is no aortic valve stenosis. No aortic regurgitation is present. Tricuspid Valve There is no tricuspid stenosis. There is a trace amount of tricuspid regurgitation. There is mild pulmonary hypertension by echo. RVSP is 38 to 43 mm of Hg , with RA mean of 5 to 10. Pulmonic Valve There is no pulmonic valvular stenosis. There is no pulmonic valvular regurgitation. Great Vessels The aortic root is not well visualized but is probably normal size. The inferior vena cava appeared normal and decreased > 50% with respiration (RAP 5-10 mmHg). Effusions Small pericardial effusion behibd Right ATrium.No eviidence of tamponade. : TUNDE PEREIRA, Yuly
[2019-07-03] MEDS: HEPARIN SOD (PORCINE) 5,000 UNIT/ML 1 ML VIAL SUBCUT SCH ×3 (06:28→22:45)
--- NOTE | 2019-07-03 08:15 | PDOC PROGRESS REPORT ---
Subjective Progress Note for:: 07/03/19 Subjective:: Patient states that he is feeling better. Breathing has improved. No new complaints. ROS: no cough. Good appetite. Not walking in [place] yet. Reason For Visit: ACUTE HYPOXIC RESPIRATORY FAILURE, PNEUMONIA Physical Exam Vital Signs: Temp Pulse Resp BP Pulse Ox 97.9 F 61 22 H 143/71 H 99 07/03/19 04:00 07/03/19 04:00 07/03/19 04:00 07/03/19 04:00 07/03/19 04:00 Intake & Output 07/02/19 07/03/19 07/04/19 06:59 06:59 06:59 Intake Total 440 1220 Output Total 1400 1130 Balance -960 90 Weight 162.8 kg 162.4 kg General appearance: PRESENT: morbidly obese Head exam: PRESENT: normocephalic Respiratory exam: PRESENT: clear to auscultation wero, unlabored Cardiovascular exam: PRESENT: RRR Neurological exam: PRESENT: alert, awake Psychiatric exam: PRESENT: appropriate affect Skin exam: PRESENT: normal color Results Laboratory Results: 07/02/19 05:15 07/02/19 05:15 07/01/19 07/01/19 07/01/19 09:31 09:31 14:25 Creatine Kinase 74 CK-MB (CK-2) 0.63 Troponin I 0.013 < 0.012 NT-Pro-B Natriuret Pep 2040 H Impressions: Chest X-Ray 07/01/19 09:10 IMPRESSION: Bilateral lower lobe pneumonia. Chest CT 07/01/19 13:49 IMPRESSION: Bilateral lower lobe airspace disease. In the appropriate clinical setting this is consistent with pneumonia. Chest/Abdomen CTA 07/02/19 09:00 IMPRESSION: 1. NORMAL CTA OF THE CHEST. NO PULMONARY EMBOLI. 2. BILATERAL PLEURAL EFFUSIONS WITH PATCHY LOWER LOBE AIRSPACE DISEASE. Assessment & Plan - Diagnosis (1) Acute respiratory failure with hypoxia Is this a current diagnosis for this admission?: Yes (2) History of pulmonary embolism Is this a current diagnosis for this admission?: Yes Plan: CT-A was negative for PE. Only with pneumonia and mild bilateral pleural effusions. Continue prophylactic dose of heparin. (3) Leukemia Qualifiers: Myeloid leukemia type: unspecified myeloid Leukemia Active/Remission status: without remission Is this a current diagnosis for this admission?: Yes Plan: I discussed with patient his diagnosis of CML. I have explained that this is a chronic medical problem that can be treated, but is not curable. I have ordered Gleevec (Imatanib) for him which is an oral agent. However, this may take a few days to arrive. I will continue to follow him with you. All patient questions were answered. I also updated hospitalists and nurses. I will give patient copy of pathology report once available. (4) Morbid obesity Is this a current diagnosis for this admission?: Yes - Time Time Spent with patient: 15-24 minutes Anticipated discharge: Home
[2019-07-03] MEDS ORDERED: (PENDING PHARMACY ID) (Sertraline Hcl [Zoloft] 200 MG) PO SCH (10:00)
[2019-07-03] MEDS: LEVOFLOXACIN 750 MG/D5W RTU 750 MG/150 ML RTUPB IV SCH (10:45)
[2019-07-03] MEDS: SERTRALINE HCL 50 MG TABLET PO SCH (10:46)
[2019-07-03] MEDS: LISINOPRIL 10 MG TABLET PO SCH (10:46)
[2019-07-03] MEDS: METOPROLOL SUCCINATE 50 MG TAB.SR.24H PO SCH (10:46)
[2019-07-03] MEDS: ISOSORBIDE MONONITRATE 30 MG TAB.ER.24H PO SCH (10:46)
[2019-07-03] MEDS: PANTOPRAZOLE SODIUM 40 MG TABLET.DR PO SCH (10:46)
[2019-07-03] MEDS: CELECOXIB 200 MG CAPSULE PO SCH ×2 (10:47→22:44)
[2019-07-03] MEDS: FUROSEMIDE 40 MG TABLET PO SCH (10:47)
--- NOTE | 2019-07-03 15:36 | PDOC PROGRESS REPORT ---
Subjective Progress Note for:: 07/03/19 Subjective:: The patient is resting comfortably on the side of the bed. He still has oxygen in place. He denies any shortness of breath. He reminds me that he is not on oxygen therapy at home. Reason For Visit: ACUTE HYPOXIC RESPIRATORY FAILURE, PNEUMONIA Physical Exam Vital Signs: Temp Pulse Resp BP Pulse Ox 99.2 F 43 L 16 136/96 H 96 07/03/19 11:32 07/03/19 11:32 07/03/19 11:32 07/03/19 11:32 07/03/19 11:32 Intake & Output 07/02/19 07/03/19 07/04/19 06:59 06:59 06:59 Intake Total 440 1220 118 Output Total 1400 1130 500 Balance -960 90 -382 Weight 162.8 kg 162.4 kg General appearance: PRESENT: no acute distress, cooperative, morbidly obese, well-developed Head exam: PRESENT: atraumatic, normocephalic Ear exam: PRESENT: normal external ear exam. ABSENT: bleeding, drainage Respiratory exam: PRESENT: clear to auscultation wero, symmetrical, unlabored. ABSENT: accessory muscle use, rales, rhonchi, tachypnea, wheezes Cardiovascular exam: PRESENT: RRR, +S1, +S2 GI/Abdominal exam: PRESENT: normal bowel sounds, soft. ABSENT: distended, tenderness Rectal exam: PRESENT: deferred Gentrourinary exam: ABSENT: indwelling catheter Extremities exam: PRESENT: pedal edema Neurological exam: PRESENT: alert, awake, oriented to person, oriented to place, oriented to time, oriented to situation, CN II-XII grossly intact Psychiatric exam: PRESENT: appropriate affect. ABSENT: agitated, anxious Focused psych exam: ABSENT: delusional, restlessness Results Laboratory Results: 07/02/19 05:15 07/02/19 05:15 07/01/19 07/01/19 07/01/19 09:31 09:31 14:25 Creatine Kinase 74 CK-MB (CK-2) 0.63 Troponin I 0.013 < 0.012 NT-Pro-B Natriuret Pep 2040 H Impressions: Chest X-Ray 07/01/19 09:10 IMPRESSION: Bilateral lower lobe pneumonia. Chest CT 07/01/19 13:49 IMPRESSION: Bilateral lower lobe airspace disease. In the appropriate clinical setting this is consistent with pneumonia. Chest/Abdomen CTA 07/02/19 09:00 IMPRESSION: 1. NORMAL CTA OF THE CHEST. NO PULMONARY EMBOLI. 2. BILATERAL PLEURAL EFFUSIONS WITH PATCHY LOWER LOBE AIRSPACE DISEASE. Assessment and Plan - Diagnosis (1) Acute respiratory failure with hypoxia Is this a current diagnosis for this admission?: Yes Plan: 07/02/2019-continue current medication regimen. Continue to wean oxygen as tolerated. 07/03/2019-the patient is quite comfortable on 2 L nasal cannula. I have asked nursing to remove his oxygen and check at rest and with ambulation. If he is not oxygen dependent he should be able to discharge home tomorrow. (2) Pneumonia Qualifiers: Pneumonia type: due to unspecified organism Laterality: bilateral Lung l ocation: lower lobe of lung Qualified Code(s): J18.1 - Lobar pneumonia, unspecified organism Is this a current diagnosis for this admission?: Yes Plan: 07/02/2019-continue antibiotic therapy. 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 Immunity may be compromised. No sputum culture was obtained. Difficult to decide on which organism may have caused the pneumonia. Is most likely bacterial and possibly Streptococcus. 07/03/2019-continue antibiotics to completion. (3) CAD (coronary artery disease) Qualifiers: Coronary Disease-Associated Artery/Lesion type: [place] artery Associated angina: without angina Is this a current diagnosis for this admission?: Yes Plan: 07/02/2019-currently no symptoms of acute coronary syndrome. Continue current regimen. 07/03/2019-no changes to current treatment plan (4) History of pulmonary embolism Is this a current diagnosis for this admission?: Yes Plan: 07/02/2019-CT angiogram shows no evidence of recurrent pulmonary embolism. 07/03/2019-there is no new pulmonary embolus detected. No therapeutic anticoagulation needs to be initiated. (5) HTN (hypertension) Is this a current diagnosis for this admission?: Yes Plan: 07/02/2019-medications resumed. Continue to monitor blood pressure. 07/03/2019-patient is back on his baseline medication regimen. Continue to monitor and adjust based on blood pressure readings. (6) CML (chronic myelocytic leukemia) Is this a current diagnosis for this admission?: Yes Plan: 07/02/2019-I discussed the case with Dr. Hopkins. She will initiate oral chemotherapeutic regimen for the patient's CML. He will follow-up with her as an outpatient. 07/03/2019-new chemotherapeutic regimen medication has been ordered. Patient will initiate either here in the hospital or at discharge. - Plan Summary Summary: If patient tolerates room air consider discharge on . Complete antibiotics as an outpatient. - Time Time Spent with patient: Less than 15 minutes Anticipated discharge: Home Within: within 48 hours
[2019-07-03] MEDS: DONEPEZIL HCL 5 MG TABLET PO SCH (22:44)
--- NOTE | 2019-07-03 23:02 | EKG REPORT ---
SEVERITY:- ABNORMAL ECG - SINUS RHYTHM ABNORMAL T, CONSIDER ISCHEMIA, DIFFUSE LEADS PROLONGED QT INTERVAL : Confirmed by: Bay Sharpe 03-Jul-2019 23:01:56
[2019-07-04] MEDS: HEPARIN SOD (PORCINE) 5,000 UNIT/ML 1 ML VIAL SUBCUT SCH ×3 (07:04→21:27)
[2019-07-04] MEDS: PANTOPRAZOLE SODIUM 40 MG TABLET.DR PO SCH (08:43)
[2019-07-04] MEDS: HYDRALAZINE HCL INJ/PF 20 MG/1 ML SDV IV PRN (08:43)
[2019-07-04] MEDS: FUROSEMIDE 40 MG TABLET PO SCH ×2 (10:12→18:29)
[2019-07-04] MEDS: LEVOFLOXACIN 750 MG/D5W RTU 750 MG/150 ML RTUPB IV SCH (10:12)
[2019-07-04] MEDS: METOPROLOL SUCCINATE 50 MG TAB.SR.24H PO SCH ×3 (10:12→21:26)
[2019-07-04] MEDS: ISOSORBIDE MONONITRATE 30 MG TAB.ER.24H PO SCH (10:12)
[2019-07-04] MEDS: LISINOPRIL 10 MG TABLET PO SCH (10:12)
[2019-07-04] MEDS: CELECOXIB 200 MG CAPSULE PO SCH ×2 (10:12→21:26)
[2019-07-04] MEDS: SERTRALINE HCL 50 MG TABLET PO SCH (10:12)
[2019-07-04] MEDS: AMLODIPINE BESYLATE 5 MG TABLET PO SCH (14:55)
--- NOTE | 2019-07-04 17:48 | PDOC PROGRESS REPORT ---
Subjective Progress Note for:: 07/04/19 Subjective:: GISELE CHO is a 79 year old male with a past medical history of hypertension, hyperlipidemia, CAD with 2 prior stenting, diet-controlled diabetes mellitus currently being worked up for possible leukemia who presented with increasing shortness of breath. Patient says that he has been having this increasing shortness of breath in the past 2 months but has noticed it has worsened in the past week. He says that in the past few days it has gotten worse and even after a few steps, he gets really short of breath. In the ER, chest x-ray shows bilateral lower lobe pneumonia. Chest CT was also done which showed by basilar opacities. Upon encounter, he saturating at 92% on room air. He is slightly tachypneic at 24-25. He reports he had bipedal edema in the past few months but it actually has gone down in the past several weeks. He has occasional PND. He denies prior diagnosis of CHF. On chart review, patient appears to have a history of right-sided pulmonary embolism in 2016 and was on Coumadin for 6 months. He says he has been off the Coumadin. 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 He also had a recent bone marrow biopsy and hematology still awaiting final results of flow cytometry and other related studies. Patient denies cough, fever or chills. He denies recent sick contacts. 07/04/2019. No acute events overnight, patient comfortably resting in bed in no apparent distress, denies any fever, chills, nausea, vomiting, diarrhea, constipation or any urinary symptoms. P.o. tolerant, having normal bowel and bladder movements. Ambulatory. Reason For Visit: ACUTE HYPOXIC RESPIRATORY FAILURE, PNEUMONIA Physical Exam Vital Signs: Temp Pulse Resp BP Pulse Ox 98.8 F 60 18 158/69 H 93 07/04/19 15:33 07/04/19 15:33 07/04/19 15:33 07/04/19 15:33 07/04/19 15:33 Intake & Output 07/03/19 07/04/19 07/05/19 06:59 06:59 06:59 Intake Total 1220 818 Output Total 1130 1075 Balance 90 -257 Weight 162.4 kg 161.1 kg General appearance: PRESENT: morbidly obese Respiratory exam: PRESENT: clear to auscultation wero. ABSENT: rales, rhonchi, wheezes Cardiovascular exam: PRESENT: RRR. ABSENT: diastolic murmur, rubs, systolic murmur GI/Abdominal exam: PRESENT: normal bowel sounds, soft. ABSENT: distended, guarding, mass, organolmegaly, rebound, tenderness Neurological exam: PRESENT: alert, awake, oriented to person, oriented to place, oriented to time, oriented to situation, CN II-XII grossly intact. ABSENT: motor sensory deficit Results Laboratory Results: 07/02/19 05:15 07/02/19 05:15 07/01/19 07/01/19 07/01/19 09:31 09:31 14:25 Creatine Kinase 74 CK-MB (CK-2) 0.63 Troponin I 0.013 < 0.012 NT-Pro-B Natriuret Pep 2040 H Impressions: Chest X-Ray 07/01/19 09:10 IMPRESSION: Bilateral lower lobe pneumonia. Chest CT 07/01/19 13:49 IMPRESSION: Bilateral lower lobe airspace disease. In the appropriate clinical setting this is consistent with pneumonia. Chest/Abdomen CTA 07/02/19 09:00 IMPRESSION: 1. NORMAL CTA OF THE CHEST. NO PULMONARY EMBOLI. 2. BILATERAL PLEURAL EFFUSIONS WITH PATCHY LOWER LOBE AIRSPACE DISEASE. Assessment and Plan - Diagnosis (1) Acute respiratory failure with hypoxia Is this a current diagnosis for this admission?: Yes Plan: Resolved. SPO2 WNL on RA. Ambulatory with no needs or supplemental oxygen. Likely due to underlying pneumonia and acute CHF exacerbation. BNP 2039. 07/02/2019. 2D echo LVEF 55%. Mild diastolic dysfunction. RVSP 38 to 43%. 07/02/2019 CTA negative for any PE. Cultures negative. Day 4/5 levofloxacin. 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 Denies any chest pain. Troponins WNL. BNP 2039. 07/02/2019. 2D echo LVEF 55%. Mild diastolic dysfunction. RVSP 38 to 43%. Due to cardiac diet, beta-blockers, ARB's, diuretics. (3) Pneumonia Qualifiers: Pneumonia type: due to unspecified organism Laterality: bilateral Lung location: lower lobe of lung Qualified Code(s): J18.1 - Lobar pneumonia, unspecified organism Is this a current diagnosis for this admission?: Yes Plan: Likely community-acquired pneumonia due to gram-positive such as strep pneumo. Day 4 IV antibiotics. Day 4/5 IV levofloxacin. SPO2 WNL on room air. Cultures negative so far. Switch levofloxacin to p.o. Will complete total of 5 days. (4) CAD (coronary artery disease) Qualifiers: Coronary Disease-Associated Artery/Lesion type: [place] artery Associated angina: without angina Is this a current diagnosis for this admission?: Yes Plan: Denies any anginal symptoms. Lisinopril 40 mg p.o. daily, metoprolol succinate 50 mg p.o. twice daily, statins and antiplatelets. Outpatient PCP follow-up. (5) CML (chronic myelocytic leukemia) Is this a current diagnosis for this admission?: Yes Plan: Oncology on board. Plan to start on imatinib. Outpatient oncology follow-up. (6) HTN (hypertension) Is this a current diagnosis for this admission?: Yes Plan: Euvolemic. Normotensive. Continue beta-blockers, calcium channel blockers, angiotensin receptor blockers, and diuretics. Adjust meds as needed. Outpatient PCP follow-up. (7) History of pulmonary embolism Is this a current diagnosis for this admission?: Yes Plan: CTA chest negative for any PE. Used to take Coumadin. SPO2 WNL on room air. Outpatient PCP follow-up. (8) Morbid obesity Is this a current diagnosis for this admission?: Yes Plan: BMI 46.9. Will order hemoglobin A1c, TSH, T3, T4 and lipid panel. Diet and lifestyle modification recommended. Patient may be a candidate for bariatric intervention. - Plan Summary Summary: If patient tolerates room air consider discharge on . Complete antibiotics as an outpatient.
[2019-07-04 19:44] LABS: CHOLESTEROL 137.89 mg/dL (0-200); TRIGLYCERIDES 174 mg/dL (<150)
[2019-07-04 19:55] LABS: DIRECT LDL 90 mg/dL (<100)
[2019-07-04 19:57] LABS: FREE T3 3.25 pg/mL (2.77-5.27)
[2019-07-04 19:59] LABS: VLDL CHOLESTEROL 34.8 mg/dL (10-31)
[2019-07-04 20:11] LABS: THYROID STIMULATING HORMONE 2.7 uIU/mL (0.47-4.68)
[2019-07-04] MEDS: TOLTERODINE TARTRATE 1 MG TABLET PO SCH (21:25)
[2019-07-04] MEDS: DONEPEZIL HCL 5 MG TABLET PO SCH (21:26)
[2019-07-04] MEDS ORDERED: ATORVASTATIN CALCIUM 40 MG TABLET PO SCH (22:00)
[2019-07-04] MEDS ORDERED: (PENDING PHARMACY ID) (Rosuvastatin Calcium [Crestor 20 Mg Tablet] 20 MG) PO SCH (22:00)
[2019-07-05] MEDS: HEPARIN SOD (PORCINE) 5,000 UNIT/ML 1 ML VIAL SUBCUT SCH ×2 (05:56→14:41)
[2019-07-05] MEDS: PANTOPRAZOLE SODIUM 40 MG TABLET.DR PO SCH (08:12)
[2019-07-05] MEDS: TOLTERODINE TARTRATE 1 MG TABLET PO SCH (09:48)
[2019-07-05] MEDS: FUROSEMIDE 40 MG TABLET PO SCH ×2 (09:49→17:58)
[2019-07-05] MEDS: AMLODIPINE BESYLATE 5 MG TABLET PO SCH (09:49)
[2019-07-05] MEDS: SERTRALINE HCL 50 MG TABLET PO SCH (09:52)
[2019-07-05] MEDS: LISINOPRIL 10 MG TABLET PO SCH (09:53)
[2019-07-05] MEDS: METOPROLOL SUCCINATE 50 MG TAB.SR.24H PO SCH (09:53)
[2019-07-05] MEDS: ISOSORBIDE MONONITRATE 30 MG TAB.ER.24H PO SCH (09:54)
[2019-07-05] MEDS: CELECOXIB 200 MG CAPSULE PO SCH (09:54)
[2019-07-05] MEDS ORDERED: LEVOFLOXACIN 750 MG TABLET PO SCH (10:00)
[2019-07-05] MEDS ORDERED: (PENDING PHARMACY ID) (Solifenacin Succinate [Vesicare] 5 MG) PO SCH (10:00)
[2019-07-05 16:43] VITALS: BP 156/78
--- NOTE | 2019-07-06 17:23 | PDOC DISCHARGE SUMMARY ---
Impression - Admit/DC Date/PCP Admission Date/Primary Care Provider: 07/01/19 15:17 Discharge Date: 07/05/19 - Discharge Diagnosis (1) Acute respiratory failure with hypoxia Is this a current diagnosis for this admission?: Yes (2) Acute CHF Is this a current diagnosis for this admission?: Yes (3) Pneumonia Is this a current diagnosis for this admission?: Yes (4) CAD (coronary artery disease) Is this a current diagnosis for this admission?: Yes (5) CML (chronic myelocytic leukemia) Is this a current diagnosis for this admission?: Yes (6) HTN (hypertension) Is this a current diagnosis for this admission?: Yes (7) History of pulmonary embolism Is this a current diagnosis for this admission?: Yes (8) Morbid obesity Is this a current diagnosis for this admission?: Yes (9) Diabetes Is this a current diagnosis for this admission?: Yes - Assessment Summary: If patient tolerates room air consider discharge on . Complete antibiotics as an outpatient. - Additional Information Resuscitation Status: Full Code Discharge Diet: Cardiac Discharge Activity: Activity As Tolerated Referrals: DONALD ROUSE MD [ACTIVE STAFF] - 07/10/19 10:45 am (in 1 week. Please call office to schedule at time of discharge. ) Prescriptions: Aspirin [Children's Aspirin] 81 mg PO DAILY 30 Days #30 tab.chew Furosemide [Lasix] 40 mg PO BID 30 Days #60 tablet Amlodipine Besylate [Norvasc 10 mg Tablet] 10 mg PO DAILY 30 Days #30 tablet Metoprolol Succinate [Toprol Xl 50 mg Tab.sr] 50 mg PO DAILY 30 Days #30 tab.sr.24h Home Medications: Donepezil HCl [Aricept 5 mg Tablet] 5 mg PO QHS 07/01/19 Isosorbide Mononitrate [Imdur 30 mg Tablet.er] 30 mg PO DAILY 07/01/19 Lisinopril [Prinivil 40 mg Tablet] 40 mg PO DAILY 07/01/19 Omeprazole 40 mg PO [id number] 07/01/19 Rosuvastatin Calcium [Crestor 20 mg Tablet] 20 mg PO QHS 07/01/19 Sertraline HCl [Zoloft] 200 mg PO DAILY 07/01/19 Solifenacin Succinate [Vesicare] 5 mg PO DAILY 07/01/19 Amlodipine Besylate [Norvasc 10 mg Tablet] 10 mg PO DAILY 30 Days #30 tablet 07/05/19 Aspirin [Children's Aspirin] 81 mg PO DAILY 30 Days #30 tab.chew 07/05/19 Furosemide [Lasix] 40 mg PO BID 30 Days #60 tablet 07/05/19 Metoprolol Succinate [Toprol Xl 50 mg Tab.sr] 50 mg PO DAILY 30 Days #30 tab.sr.24h 07/05/19 History of Present Illiness History of Present Illness: GISELE CHO is a 79 year old male with a past medical history of hypertension, hyperlipidemia, CAD with 2 prior stenting, diet-controlled diabetes mellitus currently being worked up for possible leukemia who presented with increasing shortness of breath. Patient says that he has been having this increasing shortness of breath in the past 2 months but has noticed it has worsened in the past week. He says that in the past few days it has gotten worse and even after a few steps, he gets really short of breath. In the ER, chest x-ray shows bilateral lower lobe pneumonia. Chest CT was also done which showed by basilar opacities. Upon encounter, he saturating at 92% on room air. He is slightly tachypneic at 24-25. He reports he had bipedal edema in the past few months but it actually has gone down in the past several weeks. He has occasional PND. He denies prior diagnosis of CHF. On chart review, patient appears to have a history of right-sided pulmonary embolism in 2016 and was on Coumadin for 6 months. He says he has been off the Coumadin. 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 He also had a recent bone marrow biopsy and hematology still awaiting final results of flow cytometry and other related studies. Patient denies cough, fever or chills. He denies recent sick contacts. Hospital Course Hospital Course: Assessment and Plan (1) Acute respiratory failure with hypoxia Resolved. SPO2 WNL on RA. Ambulatory with no needs or supplemental oxygen. This was likely induced due to likely due to underlying pneumonia and acute CHF exacerbation. BNP 2040. 07/02/2019. 2D echo LVEF 55%. Mild diastolic dysfunction. RVSP 38 to 43%. 07/02/2019 CTA negative for any PE. Cultures remain negative. Received 4 days of IV levofloxacin. Received 1 day of p.o. levofloxacin. Total of 5 days of antibiotics. Was discharged home on supplemental oxygen. Outpatient PCP and prolonged to follow. (2) Acute CHF Acute combined systolic and diastolic CHF. Denies any chest pain. Troponins WNL. BNP 2040. 07/02/2019. 2D echo LVEF 55%. Mild diastolic dysfunction. RVSP 38 to 43%. Started on cardiac diet, beta-blockers, ARB's, diuretics. (3) Pneumonia Likely community-acquired pneumonia due to gram-positive such as strep pneumo. Received 5 days of antibiotics. Received 4 days of IV levofloxacin. Received 1 day of p.o. levofloxacin. Cultures remain negative. (4) CAD (coronary artery disease) Denied any anginal symptoms. Was continued on lisinopril 40 mg p.o. daily, metoprolol succinate 50 mg p.o. twice daily, statins and antiplatelets. Outpatient PCP and cardiology follow-up. (5) CML (chronic myelocytic leukemia) Oncology on board. Plan to start on imatinib. Outpatient oncology follow-up. Outpatient oncology follow-up with Dr. Hopkins was obtained. (6) HTN (hypertension) Euvolemic. Normotensive. Continued on beta-blockers, calcium channel blockers, angiotensin receptor blockers, and diuretics. Outpatient PCP follow-up. (7) History of pulmonary embolism CTA chest negative for any PE. Used to take Coumadin. SPO2 WNL on room air. Outpatient PCP follow-up. (8) Morbid obesity BMI 46.9. Hemoglobin A1c 6.7. TSH, T3, T4 WNL. Diet and lifestyle modification recommended. Patient may be a candidate for bariatric intervention. (9) Diabetes Hemoglobin A1c 6.7. Mildly elevated. Diet and lifestyle modification recommended. Patient wants to try lifestyle changes before trying diabetic medications. Physical Exam Vital Signs: Temp Pulse Resp BP Pulse Ox 98.2 F 78 18 156/78 H 92 07/05/19 16:34 07/05/19 16:34 07/05/19 16:34 07/05/19 16:34 07/05/19 16:34 Intake & Output 07/05/19 07/06/19 07/07/19 06:59 06:59 06:59 Intake Total 1160 640 Output Total 1000 825 Balance 160 -185 Weight 160.8 kg Results Laboratory Results: WBC 29.1 10^3/uL (4.0-10.5) H 07/02/19 05:15 RBC 2.75 10^6/uL (4.35-5.55) L 07/02/19 05:15 Hgb 9.7 g/dL (13.5-17.0) L 07/02/19 05:15 Hct 29.0 % (37.9-51.0) L 07/02/19 05:15 MCV 105 fl (80-97) H 07/02/19 05:15 MCH 35.3 pg (27.0-33.4) H 07/02/19 05:15 MCHC 33.6 g/dL (32.0-36.0) 07/02/19 05:15 RDW 17.3 % (11.5-14.0) H 07/02/19 05:15 Plt Count 136 10^3/uL (150-450) L 07/02/19 05:15 Lymph % (Auto) Not Reportable 07/02/19 05:15 Harding % (Auto) Not Reportable 07/02/19 05:15 Eos % (Auto) Not Reportable 07/02/19 05:15 Baso % (Auto) Not Reportable 07/02/19 05:15 Absolute Neuts (auto) Not Reportable 07/02/19 05:15 Absolute Lymphs (auto) Not Reportable 07/02/19 05:15 Absolute Monos (auto) Not Reportable 07/02/19 05:15 Absolute Eos (auto) Not Reportable 07/02/19 05:15 Absolute Basos (auto) Not Reportable 07/02/19 05:15 Total Counted 100 07/02/19 05:15 Seg Neutrophils % Not Reportable 07/02/19 05:15 Seg Neuts % (Manual) 67 % (42-78) 07/02/19 05:15 Band Neutrophils % 12 % (3-5) H 07/02/19 05:15 Lymphocytes % (Manual) 10 % (13-45) L 07/02/19 05:15 Atypical Lymphs % 2 % (0) 07/02/19 05:15 Monocytes % (Manual) 0 % (3-13) L 07/02/19 05:15 Eosinophils % (Manual) 0 % (0-6) 07/02/19 05:15 Basophils % (Manual) 0 % (0-2) 07/02/19 05:15 Metamyelocytes % 3 % (0) H 07/02/19 05:15 Myelocytes % 6 % (0) H 07/02/19 05:15 Promyelocytes % 5 % (0) H 07/01/19 10:50 Immature Leukocytes % 1 % (0) H 07/01/19 10:50 Abs Neuts (Manual) 25.6 10^3/uL (1.7-8.2) H 07/02/19 05:15 Abs Lymphs (Manual) 3.5 10^3/uL (0.5-4.7) 07/02/19 05:15 Abs Monocytes (Manual) 0.0 10^3/uL (0.1-1.4) L 07/02/19 05:15 Absolute Eos (Manual) 0.0 10^3/uL (0.0-0.6) 07/02/19 05:15 Abs Basophils (Manual) 0.0 10^3/uL (0.0-0.2) 07/02/19 05:15 Platelet Estimate Cancelled 07/01/19 09:31 Platelet Comment ADEQUATE 07/02/19 05:15 Polychromasia SLIGHT 07/02/19 05:15 Hypochromasia SLIGHT 07/02/19 05:15 Poikilocytosis SLIGHT 07/01/19 10:50 Anisocytosis 1+ 07/02/19 05:15 Macrocytosis 2+ 07/02/19 05:15 Tear Drop Cells SLIGHT 07/01/19 10:50 PT 18.7 SEC (11.4-15.4) H 07/01/19 09:31 INR 1.55 07/01/19 09:31 APTT 24.7 SEC (23.5-35.8) 07/01/19 17:38 Sodium 140.7 mmol/L (137-145) 07/02/19 05:15 Potassium 3.8 mmol/L (3.6-5.0) 07/02/19 05:15 Chloride 102 mmol/L (98-107) 07/02/19 05:15 Carbon Dioxide 31 mmol/L (22-30) H 07/02/19 05:15 Anion Gap 8 (5-19) 07/02/19 05:15 BUN 10 mg/dL (7-20) 07/02/19 05:15 Creatinine 0.95 mg/dL (0.52-1.25) 07/02/19 05:15 Est GFR ( Amer) > 60 (>60) 07/02/19 05:15 Est GFR (MDRD) Non-Af > 60 (>60) 07/02/19 05:15 Glucose 102 mg/dL (75-110) 07/02/19 05:15 Hemoglobin A1c % 6.7 % (4.7-6.0) H 07/04/19 18:57 Lactic Acid 1.2 mmol/L (0.7-2.1) 07/01/19 16:27 Calcium 9.5 mg/dL (8.4-10.2) 07/02/19 05:15 Total Bilirubin 0.8 mg/dL (0.2-1.3) 07/01/19 09:31 Direct Bilirubin 0.1 mg/dL (0.0-0.4) 07/01/19 09:31 Neonat Total Bilirubin Not Reportable 07/01/19 09:31 Neonat Direct Bilirubin Not Reportable 07/01/19 09:31 Neonat Indirect Bili Not Reportable 07/01/19 09:31 AST 25 U/L (17-59) 07/01/19 09:31 ALT 17 U/L (<50) 07/01/19 09:31 Alkaline Phosphatase 83 U/L (38-126) 07/01/19 09:31 Creatine Kinase 74 U/L (55-170) 07/01/19 09:31 CK-MB (CK-2) 0.63 ng/mL (<4.55) 07/01/19 09:31 Troponin I < 0.012 ng/mL 07/01/19 14:25 NT-Pro-B Natriuret Pep 2040 pg/mL (<450) H 07/01/19 09:31 Total Protein 6.7 g/dL (6.3-8.2) 07/01/19 09:31 Albumin 3.8 g/dL (3.5-5.0) 07/01/19 09:31 Triglycerides 174 mg/dL (<150) H 07/04/19 18:57 Cholesterol 137.89 mg/dL (0-200) 07/04/19 18:57 LDL Cholesterol Direct 90 mg/dL (<100) 07/04/19 18:57 VLDL Cholesterol 34.8 mg/dL (10-31) H 07/04/19 18:57 HDL Cholesterol 23 mg/dL (>40) L 07/04/19 18:57 TSH 2.70 uIU/mL (0.47-4.68) 07/04/19 18:57 Free T3 pg/mL 3.25 pg/mL (2.77-5.27) 07/04/19 18:57 Slides for Path Review PATHOLOGIST REVIEWED 07/01/19 10:50 07/01/19 07/01/19 09:31 14:25 CK-MB (CK-2) 0.63 Troponin I 0.013 < 0.012 NT-Pro-B Natriuret Pep 2040 H Impressions: Chest X-Ray 07/01/19 00:00 IMPRESSION: New left subclavian vascular catheter with tip directed toward the aortic arch left of midline, correlate to exclude arterial placement. Chest X-Ray 07/01/19 00:00 IMPRESSION: Basilar atelectasis or infiltrate with bilateral effusions unchanged from the previous Cardiac enlargement IJ catheter in place on the right with the tip in the SVC Chest X-Ray 07/01/19 09:10 IMPRESSION: Bilateral lower lobe pneumonia. Chest CT 07/01/19 13:49 IMPRESSION: Bilateral lower lobe airspace disease. In the appropriate clinical setting this is consistent with pneumonia. Chest/Abdomen CTA 07/02/19 09:00 IMPRESSION: 1. NORMAL CTA OF THE CHEST. NO PULMONARY EMBOLI. 2. BILATERAL PLEURAL EFFUSIONS WITH PATCHY LOWER LOBE AIRSPACE DISEASE. Plan Goals: Primary Care is Dr. Torres at [facility]--- patient will schedule appt Stroke Is this a Stroke Patient?: No Acute Heart Failure - Is this a Heart Failure Patient?: No
== END 2019-07-05 19:15 | disposition home or self-care (01) | DRG 193 ==
LOC: ER 08:22 → UNDOADMOB 14:44 → INTOOBSV 14:44 → EH 14:44 → OBSVTOIN 15:17 → 3W 20:17
PROVIDERS: ADMIT Internal Medicine; ATTEND Internal Medicine
PROC: 05H633Z Insertion of Infusion Device into Left Subclavian Vein, Percutaneous Approach (ICD-10-PCS; principal; 2019-07-01)
DX: J15.4 Pneumonia due to other streptococci (principal); J96.01 Acute respiratory failure with hypoxia; I50.41 Acute combined systolic (congestive) and diastolic (congestive) heart failure; Z68.43 Body mass index [BMI] 50.0-59.9, adult; C92.10 Chronic myeloid leukemia, BCR/ABL-positive, not having achieved remission; I11.0 Hypertensive heart disease with heart failure; E78.5 Hyperlipidemia, unspecified; I25.10 Atherosclerotic heart disease of native coronary artery without angina pectoris; E11.9 Type 2 diabetes mellitus without complications; I25.2 Old myocardial infarction; E66.01 Morbid (severe) obesity due to excess calories; Z95.5 Presence of coronary angioplasty implant and graft; Z86.711 Personal history of pulmonary embolism; Z79.899 Other long term (current) drug therapy; Z87.891 Personal history of nicotine dependence
CPT/HCPCS: 36415; 71045; 71250; 71275; 80048; 80053; 80061; 81206; 81207; 82550; 82553; 83036; 83605; 83880; 84443; 84481; 84484; 85025; 85610; 85730; 87040; 93005; 93010; 93306; 99285; C1751; C1769; J0360; J1642; J1644; J1940; J1956; J3490